=== PATIENT | female | born 1980 | race Caucasian/White ===

== ENCOUNTER 2017-02-14 05:38 | Emergency (ER) | payer OTHER ==
[2017-02-14] MEDS ORDERED: Ketorolac Tromethamine 30 MG/ML VIAL ONE (06:02)
[2017-02-14] MEDS ORDERED: Morphine 4 MG/ML VIAL ONE (06:02)
[2017-02-14] MEDS ORDERED: Ondansetron HCl/PF 4 MG/2 ML Vial ONE (06:02)
[2017-02-14 06:04] LABS: Bilirubin Negative (Negative); Blood, Urine Moderate (Negative); Glucose, Urine (Dipstick) Negative (Negative); Ketone, Urine Negative (Negative); Nitrite Negative (Negative); Protein, Urine (Dipstick) 100 mg/dL (Neg-Trace); Urobilinogen 0.2 mg/dL (0.2-1.0)
[2017-02-14 06:09] LABS: #Basophils 0.1 thou/uL (0.0-0.2); #Lymphocytes 3.8 thou/uL (1.20-3.40); #Monocytes 0.8 thou/uL (0.11-0.59); #Neutrophils 8.8 thou/uL (1.40-6.50); %Basophils 0.4 % (0.0-1.0); %Eosinophils 0.1 % (0.0-10.0); %Lymphocytes 28.4 % (21.0-51.0); %Monocytes 6.2 % (0.0-10.0); Hematocrit 37.3 % (36.0-47.0); Mean Platelet Volume 6.4 fL (7.4-10.4); Red Blood Cell (RBC) Count 4.32 mill/uL (4.20-5.40); White Blood Cell (WBC) Count 13.5 thou/uL (4.8-10.8)
[2017-02-14 06:10] LABS: Bacteria/HPF 2+ HPF (None Seen); Hyaline Casts/LPF 4-6 HYALINE CAST LPF (0-3 Hyaline)
[2017-02-14 06:30] LABS: ALT (SGPT) 23 U/L (8-55); AST (SGOT) 15 U/L (5-34); Alkaline Phosphatase 84 U/L (40-150); Anion Gap 14 mmol/L (10-20); BUN (Urea Nitrogen) 14 mg/dL (7.0-18.7); Bilirubin, Total 0.3 mg/dL (0.2-1.2); CK (CPK) 31 U/L (29-168); Calc. Creatinine Clearance 0 mL/min (70-130); Calcium 9.4 mg/dL (7.8-10.44); Carbon Dioxide 22 mmol/L (22-29); Chloride 105 mmol/L (98-107); Estimated GFR-MDRD 82; Globulin 3.3 g/dL (2.4-3.5); Lipase 19 U/L (8-78); Protein, Total 7.3 g/dL (6.0-8.3)
[2017-02-14] MEDS ORDERED: Ciprofloxacin 500 MG TAB ONE (07:29)
--- NOTE | 2017-02-14 07:43 | CT ---
ABDOMEN AND PELVIC CT SCAN WITHOUT IV CONTRAST: History: 36-year-old female with right flank pain beginning this morning. FINDINGS: There is a 0.7 x 1.0 cm diameter somewhat irregularly shaped pulmonary nodule in the left lower lobe of the lung. Fatty changes are noted in the liver. The gallbladder appears unremarkable. Pancreas, sp bartolo, and adrenal glands are unremarkable as evaluated without IV contrast. No renal calculus or acut e obstruction. Normal appearing appendix. No evidence for bowel obstruction, abscess, adenopathy, or significant abnormal fluid collection. The uterus is borderline in size. Unremarkable adnexal ina ons. IMPRESSION: No evidence of renal calculus or obstruction or other significant acute process in the abdomen or pelvis. Borderline sized uterus. Left lower lobe irregularly shaped pulmonary nodule 0.7 x 1.0 cm. This does need additional imaging, probably to include a complete chest CT scan as well as a follow u p PET scan for further assessment of this pulmonary nodule. Code LN. POS: LEENA
== END 2017-02-14 09:16 | disposition home or self-care (01) ==
LOC: ERS 05:38
DX: N39.0 Urinary tract infection, site not specified (principal); E03.9 Hypothyroidism, unspecified; E11.9 Type 2 diabetes mellitus without complications; F41.9 Anxiety disorder, unspecified; I10 Essential (primary) hypertension; Z79.84 Long term (current) use of oral hypoglycemic drugs; Z79.899 Other long term (current) drug therapy
CPT/HCPCS: 74176; 80053; 81003; 81015; 82550; 83690; 84703; 85025; 87077; 87086; 96361; 96374; 96375; J1885; J2270; J2405

== ENCOUNTER 2017-03-08 12:30 | Outpatient (CLI) | payer OTHER ==
[2017-03-08] MEDS ORDERED: Iopamidol 370 76% 100 ML VIAL ONE (14:03)
--- NOTE | 2017-03-08 14:17 | CT ---
CT CHEST WITH AND WITHOUT CONTRAST: TECHNIQUE: Multiple tomograms were obtained through the chest both pre- and post-IV contrast administration. HISTORY: Followup pulmonary nodule noted on CT abdomen 02/14/17. FINDINGS: There is a 7-8 mm nodule in the left lower lobe peripherally which corresponds to a nodule seen on re cent CT. There is a suggestion of some internal calcification on the coronal sequences. This is not definitely confirmed on axial images. There are no pulmonary nodules seen. Lungs are otherwise clear. Mediastinum is unremarkable. IMPRESSION: There is an 8 mm nodule in the left lung base peripherally. There is a suggestion of internal calcif ication. Recommend a followup noncontrast CT scan chest in 6-9 months to confirm stability. POS: LEENA
== END 2017-03-08 12:31 | disposition home or self-care (01) ==
LOC: CT 12:30
PROVIDERS: ATTEND Family Medicine
DX: R91.1 Solitary pulmonary nodule (principal)
CPT/HCPCS: 71270